=== PATIENT | female | born 1940 | race Caucasian/White ===

== ENCOUNTER 2019-01-01 17:13 | Emergency (ER) | payer MEDICARE, OTHER, BC ==
[2019-01-01] MEDS: DIAZEPAM 5 MG/ML SYG IV (20:52)
[2019-01-01] MEDS: SOD CHLORIDE 0.9% 1,000 ML IV (20:52)
[2019-01-01] MEDS: KETOROLAC 15 MG INJ IV (20:52)
== END 2019-01-01 23:02 | disposition home or self-care (01) ==
LOC: E/R 17:13
DX: M62.838 Other muscle spasm (principal)
CPT/HCPCS: 72125; 96361; 96374; 96375; 99285-25